=== PATIENT | female | born 1985 | race Caucasian/White ===

== ENCOUNTER 2018-08-04 10:03 | Emergency (ER) | payer OTHER, SELFPAY ==
[2018-08-04 10:45] VITALS: BP 109/72; PULSE 91; RESP 16; TEMP 36.5; O2SAT 99
--- NOTE | 2018-08-04 12:07 | ED.URI ---
HPI - URI/Sore Throat <LINO Ahn - Last Filed: 08/04/18 21:23> General Chief Complaint: Upper Respiratory Symptoms Stated Complaint: DIFFICULTY BREATHING Time Seen by Provider: 08/04/18 12:06 Source: patient Mode of arrival: ambulatory Limitations: no limitations History of Present Illness HPI Narrative: 32-year-old healthy female that is a nonsmoker here for complaint of having wheezing and shortness of breath earlier today. She was recently seen at the [facility] and treated for pneumonia a couple weeks ago. She has had continued symptoms after treatment with antibiotics and is currently being treated for adult onset asthma. she currently has an albuterol inhaler that she has been using which has been helping. She was placed on steroids but she stop taking them approximately 10 days ago. She denies any recent fever. Cough And shortness of breath is better after using the albuterol inhaler this morning. she denies any recent fevers. Positive p.o. intake no nausea vomiting. She denies any pain. MD Complaint: cough Related Data Home Medications Medication Instructions Recorded Confirmed albuterol sulfate [ProAir HFA] 1 puff INHALATION PRN PRN 08/04/18 08/04/18 benzonatate 100 mg PO TID 08/04/18 08/04/18 ipratropium-albuterol [Combivent 1 puff INHALATION DIRECTED 08/04/18 08/04/18 Respimat] methylprednisolone 1 dose PO DIRECTED 08/04/18 08/04/18 multivitamin 1 tab PO DAILY 08/04/18 08/04/18 Previous Rx's Medication Instructions Recorded prednisone 40 mg PO DAILY #8 tab 08/04/18 Allergies Allergy/AdvReac Type Severity Reaction Status Date / Time erythromycin base Allergy Verified 08/04/18 10:45 Penicillins Allergy Verified 08/04/18 10:45 Review of Systems <LINO Ahn - Last Filed: 08/04/18 21:23> Constitutional Denies chills, Denies fever(s), Denies lethargy and Denies weakness Eyes Denies change in vision, Denies eye discharge, Denies irritation and Denies loss of vision ENT Ears, Nose, Mouth, and Throat: Denies change in voice, Denies neck pain and Denies sore throat Cardiovascular Denies chest pain, Denies irregular heart rhythm, Denies lightheadedness, Denies palpitations and Denies orthopnea Respiratory Reports chest congestion and Reports wheezing Gastrointestinal Gastrointestinal: Denies abdominal pain, Denies change in bowel habits, Denies diarrhea, Denies nausea and Denies vomiting Genitourinary Denies hematuria, Denies flank pain, Denies urinary incontinence and Denies urinary urgency Musculoskeletal Denies neck pain Integumentary/Breasts Denies pruritus, Denies erythema, Denies rash and Denies wounds Neurologic Denies confusion, Denies loss of vision and Denies weakness Psychiatric Denies anxiety, Denies confusion, Denies depression, Denies homicidal ideation and Denies suicidal ideation Endocrine Denies palpitations Hematologic/Lymphatic Denies easy bruising Allergic/Immunologic Reports wheezing Exam <LINO Ahn - Last Filed: 08/04/18 21:23> Initial Vital Signs Initial Vital Signs: Vital Signs Temperature 97.7 F 08/04/18 10:45 Pulse Rate 91 H 08/04/18 10:45 Respiratory Rate 16 08/04/18 10:45 Blood Pressure 109/72 08/04/18 10:45 Pulse Oximetry 99 08/04/18 10:45 Const General: cooperative and well developed Nutritional Appearance: well nourished Orientation: alert, awake, oriented x3 and not confused HENAR Mouth: oral mucosae normal, oropharynx normal and moist mucous membranes Eyes Conjunctivae: conjunctivae normal Sclera: sclerae normal Pupils: PERRL EOM: EOM intact bilaterally Resp Effort & Inspection: normal respiratory effort, able to speak in complete sentences, no respiratory distress and no use of accessory muscles Auscultation: clear to auscultation bilaterally, no rales, no rhonchi and no wheezes Cardio Rate: regular rate Rhythm: regular rhythm Heart Sounds: no click, no gallops, no murmurs and no rubs Pulses: normal peripheral pulses Skin General: no rashes or lesions noted, No jaundice and No petechiae Neuro General: alert, oriented x3, gait normal and no focal motor deficits Speech: speech normal <Merary Gallagher DO - Last Filed: 08/05/18 07:18> Initial Vital Signs Initial Vital Signs: Vital Signs Temperature 97.7 F 08/04/18 10:45 Pulse Rate 91 H 08/04/18 10:45 Respiratory Rate 16 08/04/18 10:45 Blood Pressure 109/72 08/04/18 10:45 Pulse Oximetry 99 08/04/18 10:45 Course <LINO Ahn - Last Filed: 08/04/18 21:23> Orders Ordered: Discontinued Medications Albuterol/Ipratropium (Duoneb) 3 ml INH NOW ONE Stop: 08/04/18 12:18 Last Admin: 08/04/18 12:33 Dose: 3 ml Vital Signs - 8 hr 08/04/18 10:45 08/04/18 12:34 Temperature 97.7 F Pulse Rate 91 H 90 Respiratory Rate 16 Blood Pressure 109/72 Pulse Oximetry 99 99 <Merary Gallagher DO - Last Filed: 08/05/18 07:18> Orders Ordered: Discontinued Medications Albuterol/Ipratropium (Duoneb) 3 ml INH NOW ONE Stop: 08/04/18 12:18 Last Admin: 08/04/18 12:33 Dose: 3 ml Vital Signs - 8 hr 08/04/18 10:45 08/04/18 12:34 Temperature 97.7 F Pulse Rate 91 H 90 Respiratory Rate 16 Blood Pressure 109/72 Pulse Oximetry 99 99 MDM - URI/Sore Throat <LINO Ahn - Last Filed: 08/04/18 21:23> Imaging Data Chest x-ray: Radiologist's impression: RADHA Suarez [id number] XRay Report Signed Patient: FARTUN MART DMR#: [id number] : 1985Acct:[id number] Age/Sex: 32 / FDate of Service: 08/04/18 Loc: ED Accession Number: [id number] Procedure: XR chest 2V Ordering Provider: Osbaldo Trejo PROCEDURE: XR CHEST 2V INDICATIONS: recent dx pneumonia not any better TECHNIQUE: 2 views of the chest were acquired. COMPARISON: None. FINDINGS: Surgical changes and devices: None. Lungs and pleura: No pleural effusions or pneumothorax. Lungs are clear. No focal consolidation is evident. Mediastinum: Mediastinal contours are normal. Heart size is normal. Bones and chest wall: No suspicious bony abnormalities. Soft tissues appear unremarkable. IMPRESSION: No pneumonia is evident. No acute process is suspected. Dictated by: Sixto Reardon M.D. on 08/04/2018 at 11:43 Approved by: Sixto Reardon M.D. on 08/04/2018 at 11:46 MDM Narrative Medical decision making narrative: chest x-ray was obtained was negative for any acute findings. No signs of pneumonia. Suspect viral illness causing increased irritation to her airways. Continue using albuterol inhaler as prescribed. Short course of prednisone is given to help with airway irritation. Follow up with primary care provider in the next couple days for re-evaluation. If continued symptoms consider pulmonary referral. for any worsening symptoms return to the emergency room. Discharge Plan Departure Patient Disposition: Home Clinical Impression: Upper respiratory infection Discharge Date/Time: 08/04/18 13:10 Interventions: ED Discharge Assessment Last Done: 08/04/18 13:09 Instructions: DI for Viral Upper Respiratory Infection -- Adult Activity Restrictions/Additional Instructions: x-ray of the chest was obtained was negative for any signs of pneumonia. Signs and symptoms presents as viral upper respiratory infection causing irritation to the airways . recommend follow up with primary care provider in the next few days for re-evaluation. If continued symptoms recommend pulmonary referral to rule out asthma. here prescribed a short course of prednisone use as directed. Use albuterol inhaler as prescribed. For any worsening symptoms return to the emergency room. Prescriptions: New prednisone 20 mg tablet 40 mg PO DAILY Qty: 8 RF: 0 No Action multivitamin Tablet 1 tab PO DAILY RF: 0 benzonatate 100 mg capsule 100 mg PO TID RF: 0 methylprednisolone 4 mg tablets,dose pack 1 dose PO DIRECTED RF: 0 albuterol sulfate [ProAir HFA] 90 mcg/actuation HFA aerosol inhaler 1 puff Inhalation PRN PRN (Reason: Shortness Of Breath) RF: 0 ipratropium-albuterol [Combivent Respimat] 20-100 mcg/actuation mist 1 puff Inhalation DIRECTED RF: 0 Referrals: [facility] [Provider Group] Stand Alone Forms: Work/School Restrictions <Merary Gallagher DO - Last Filed: 08/05/18 07:18> Cosign ED Attending Cosignature Attestation: I was immediately available in the department for consultation. This documentation has been reviewed and I agree with assessment and plan. Supervised by Merary Gallagher DO
--- NOTE | 2018-08-04 12:17 | DI.RAD.S_ITS ---
PROCEDURE: XR CHEST 2V INDICATIONS: recent dx pneumonia not any better TECHNIQUE: 2 views of the chest were acquired. COMPARISON: None. FINDINGS: Surgical changes and devices: None. Lungs and pleura: No pleural effusions or pneumothorax. Lungs are clear. No focal consolidation is evident. Mediastinum: Mediastinal contours are normal. Heart size is normal. Bones and chest wall: No suspicious bony abnormalities. Soft tissues appear unremarkable. IMPRESSION: No pneumonia is evident. No acute process is suspected. Dictated by: Sixto Reardon M.D. on 08/04/2018 at 11:43 Approved by: Sixto Reardon M.D. on 08/04/2018 at 11:46
[2018-08-04] MEDS: ALBUTEROL/IPRATROPIUM 3 ML AMPUL INH (12:33)
[2018-08-04 12:34] VITALS: PULSE 90; O2SAT 99
--- NOTE | 2018-08-04 12:53 | ED_ITS ---
HPI - URI/Sore Throat <LINO Ahn - Last Filed: 08/04/18 21:23> General Chief Complaint: Upper Respiratory Symptoms Stated Complaint: DIFFICULTY BREATHING Time Seen by Provider: 08/04/18 12:06 Source: patient Mode of arrival: ambulatory Limitations: no limitations History of Present Illness HPI Narrative: 32-year-old healthy female that is a nonsmoker here for complaint of having wheezing and shortness of breath earlier today. She was recently seen at the [facility] and treated for pneumonia a couple weeks ago. She has had continued symptoms after treatment with antibiotics and is currently being treated for adult onset asthma. she currently has an albuterol inhaler that she has been using which has been helping. She was placed on steroids but she stop taking them approximately 10 days ago. She denies any recent fever. Cough And shortness of breath is better after using the albuterol inhaler this morning. she denies any recent fevers. Positive p.o. intake no nausea vomiting. She denies any pain. MD Complaint: cough Related Data Home Medications Medication Instructions Recorded Confirmed albuterol sulfate [ProAir HFA] 1 puff INHALATION PRN PRN 08/04/18 08/04/18 benzonatate 100 mg PO TID 08/04/18 08/04/18 ipratropium-albuterol [Combivent 1 puff INHALATION DIRECTED 08/04/18 08/04/18 Respimat] methylprednisolone 1 dose PO DIRECTED 08/04/18 08/04/18 multivitamin 1 tab PO DAILY 08/04/18 08/04/18 Previous Rx's Medication Instructions Recorded prednisone 40 mg PO DAILY #8 tab 08/04/18 Allergies Allergy/AdvReac Type Severity Reaction Status Date / Time erythromycin base Allergy Verified 08/04/18 10:45 Penicillins Allergy Verified 08/04/18 10:45 Review of Systems <LINO Ahn - Last Filed: 08/04/18 21:23> Constitutional Denies chills, Denies fever(s), Denies lethargy and Denies weakness Eyes Denies change in vision, Denies eye discharge, Denies irritation and Denies loss of vision ENT Ears, Nose, Mouth, and Throat: Denies change in voice, Denies neck pain and Denies sore throat Cardiovascular Denies chest pain, Denies irregular heart rhythm, Denies lightheadedness, Denies palpitations and Denies orthopnea Respiratory Reports chest congestion and Reports wheezing Gastrointestinal Gastrointestinal: Denies abdominal pain, Denies change in bowel habits, Denies diarrhea, Denies nausea and Denies vomiting Genitourinary Denies hematuria, Denies flank pain, Denies urinary incontinence and Denies urinary urgency Musculoskeletal Denies neck pain Integumentary/Breasts Denies pruritus, Denies erythema, Denies rash and Denies wounds Neurologic Denies confusion, Denies loss of vision and Denies weakness Psychiatric Denies anxiety, Denies confusion, Denies depression, Denies homicidal ideation and Denies suicidal ideation Endocrine Denies palpitations Hematologic/Lymphatic Denies easy bruising Allergic/Immunologic Reports wheezing Exam <LINO Ahn - Last Filed: 08/04/18 21:23> Initial Vital Signs Initial Vital Signs: Vital Signs Temperature 97.7 F 08/04/18 10:45 Pulse Rate 91 H 08/04/18 10:45 Respiratory Rate 16 08/04/18 10:45 Blood Pressure 109/72 08/04/18 10:45 Pulse Oximetry 99 08/04/18 10:45 Const General: cooperative and well developed Nutritional Appearance: well nourished Orientation: alert, awake, oriented x3 and not confused HENIN Mouth: oral mucosae normal, oropharynx normal and moist mucous membranes Eyes Conjunctivae: conjunctivae normal Sclera: sclerae normal Pupils: PERRL EOM: EOM intact bilaterally Resp Effort & Inspection: normal respiratory effort, able to speak in complete sentences, no respiratory distress and no use of accessory muscles Auscultation: clear to auscultation bilaterally, no rales, no rhonchi and no wheezes Cardio Rate: regular rate Rhythm: regular rhythm Heart Sounds: no click, no gallops, no murmurs and no rubs Pulses: normal peripheral pulses Skin General: no rashes or lesions noted, No jaundice and No petechiae Neuro General: alert, oriented x3, gait normal and no focal motor deficits Speech: speech normal <Merary Gallagher DO - Last Filed: 08/05/18 07:18> Initial Vital Signs Initial Vital Signs: Vital Signs Temperature 97.7 F 08/04/18 10:45 Pulse Rate 91 H 08/04/18 10:45 Respiratory Rate 16 08/04/18 10:45 Blood Pressure 109/72 08/04/18 10:45 Pulse Oximetry 99 08/04/18 10:45 Course <LINO Ahn - Last Filed: 08/04/18 21:23> Orders Ordered: Discontinued Medications Albuterol/Ipratropium (Duoneb) 3 ml INH NOW ONE Stop: 08/04/18 12:18 Last Admin: 08/04/18 12:33 Dose: 3 ml Vital Signs - 8 hr 08/04/18 10:45 08/04/18 12:34 Temperature 97.7 F Pulse Rate 91 H 90 Respiratory Rate 16 Blood Pressure 109/72 Pulse Oximetry 99 99 <Merary Gallagher DO - Last Filed: 08/05/18 07:18> Orders Ordered: Discontinued Medications Albuterol/Ipratropium (Duoneb) 3 ml INH NOW ONE Stop: 08/04/18 12:18 Last Admin: 08/04/18 12:33 Dose: 3 ml Vital Signs - 8 hr 08/04/18 10:45 08/04/18 12:34 Temperature 97.7 F Pulse Rate 91 H 90 Respiratory Rate 16 Blood Pressure 109/72 Pulse Oximetry 99 99 MDM - URI/Sore Throat <LINO Ahn - Last Filed: 08/04/18 21:23> Imaging Data Chest x-ray: Radiologist's impression: RADHA Suarez [id number] XRay Report Signed Patient: FARTUN MART DMR#: [id number] : 1985Acct:[id number] Age/Sex: 32 / FDate of Service: 08/04/18 Loc: ED Accession Number: [id number] Procedure: XR chest 2V Ordering Provider: Osbaldo Trejo PROCEDURE: XR CHEST 2V INDICATIONS: recent dx pneumonia not any better TECHNIQUE: 2 views of the chest were acquired. COMPARISON: None. FINDINGS: Surgical changes and devices: None. Lungs and pleura: No pleural effusions or pneumothorax. Lungs are clear. No focal consolidation is evident. Mediastinum: Mediastinal contours are normal. Heart size is normal. Bones and chest wall: No suspicious bony abnormalities. Soft tissues appear unremarkable. IMPRESSION: No pneumonia is evident. No acute process is suspected. Dictated by: Sixto Reardon M.D. on 08/04/2018 at 11:43 Approved by: Sixto Reardon M.D. on 08/04/2018 at 11:46 MDM Narrative Medical decision making narrative: chest x-ray was obtained was negative for any acute findings. No signs of pneumonia. Suspect viral illness causing increased irritation to her airways. Continue using albuterol inhaler as prescribed. Short course of prednisone is given to help with airway irritation. Follow up with primary care provider in the next couple days for re -evaluation. If continued symptoms consider pulmonary referral. for any worsening symptoms return to the emergency room. Discharge Plan Departure Patient Disposition: Home Clinical Impression: Upper respiratory infection Discharge Date/Time: 08/04/18 13:10 Interventions: ED Discharge Assessment Last Done: 08/04/18 13:09 Instructions: DI for Viral Upper Respiratory Infection -- Adult Activity Restrictions/Additional Instructions: x-ray of the chest was obtained was negative for any signs of pneumonia. Signs and symptoms presents as viral upper respiratory infection causing irritation to the airways . recommend follow up with primary care provider in the next few days for re-evaluation. If continued symptoms recommend pulmonary referral to rule out asthma. here prescribed a short course of prednisone use as directed. Use albuterol inhaler as prescribed. For any worsening symptoms return to the emergency room. Prescriptions: New prednisone 20 mg tablet 40 mg PO DAILY Qty: 8 RF: 0 No Action multivitamin Tablet 1 tab PO DAILY RF: 0 benzonatate 100 mg capsule 100 mg PO TID RF: 0 methylprednisolone 4 mg tablets,dose pack 1 dose PO DIRECTED RF: 0 albuterol sulfate [ProAir HFA] 90 mcg/actuation HFA aerosol inhaler 1 puff Inhalation PRN PRN (Reason: Shortness Of Breath) RF: 0 ipratropium-albuterol [Combivent Respimat] 20-100 mcg/actuation mist 1 puff Inhalation DIRECTED RF: 0 Referrals: [facility] [Provider Group] Stand Alone Forms: Work/School Restrictions <Merary Gallagher DO - Last Filed: 08/05/18 07:18> Cosign ED Attending Cosignature Attestation: I was immediately available in the department for consultation. This documentation has been reviewed and I agree with assessment and plan. Supervised by Merary Gallagher DO
[2018-08-04 13:09] VITALS: BP 119/65; PULSE 98; RESP 20; O2SAT 99
== END 2018-08-04 13:10 | disposition home or self-care (01) ==
PROVIDERS: Emergency Provider Nurse Practitioner Family
DX: J06.9 Acute upper respiratory infection, unspecified (principal)
CPT/HCPCS: 71046; 94640; 99282; 99283

== ENCOUNTER 2018-11-04 12:28 | Emergency (ER) | payer OTHER, SELFPAY ==
[2018-11-04 12:46] VITALS: BP 120/74; PULSE 68; RESP 14; TEMP 36.7; O2SAT 100
--- NOTE | 2018-11-04 12:58 | DI.CT.S_ITS ---
PROCEDURE: CT HEAD/BRAIN WO CON INDICATIONS: heavy steel bar hit right side of head above ear, cont pain. TECHNIQUE: Noncontrast 4.5 mm thick angled axial sections acquired from the foramen magnum to the vertex, with coronal and sagittal reformats. For radiation dose reduction, the following was used: automated exposure control, adjustment of mA and/or kV according to patient size. COMPARISON: None. FINDINGS: Image quality: Excellent. CSF spaces: Basal cisterns are patent. No extra-axial fluid collections. Ventricles are normal in size and shape. Brain: No midline shift. No intracranial masses or hemorrhage. Wills-white matter interface is normal. Skull and face: Calvarium and visualized facial bones are intact, without suspicious lesions. Sinuses: Visualized sinuses and mastoids are clear. IMPRESSION: Normal head CT. Dictated by: Robert Noonan M.D. on 11/04/2018 at 13:29 Approved by: Robert Noonan M.D. on 11/04/2018 at 13:30
--- NOTE | 2018-11-04 15:07 | PC.NURSE ---
No neuro deficit. Does report change in mood and has difficulty w/ task requiring mental exertion.
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
[2018-11-04] MEDS: IBUPROFEN 400 MG TABLET PO (15:56)
[2018-11-04 16:11] VITALS: BP 110/72; PULSE 54; RESP 12; O2SAT 98
== END 2018-11-04 16:13 | disposition home or self-care (01) ==
PROVIDERS: Emergency Provider Nurse Practitioner Family
DX: S06.0X0A Concussion without loss of consciousness, initial encounter (principal); W22.8XXA Striking against or struck by other objects, initial encounter
CPT/HCPCS: 70450; 99282; 99284

== ENCOUNTER → 2019-03-22 09:37 | Outpatient (CLI) | payer OTHER, SELFPAY ==
--- NOTE | 2019-03-22 09:38 | DI.RAD.S_ITS ---
PROCEDURE: XR HUMERUS LT 2V INDICATIONS: eval foreign body, humerus side/contraceptive device TECHNIQUE: 2 views of the humerus were acquired. COMPARISON: None. FINDINGS: Bones: No fractures or dislocations. No suspicious bony lesions. Soft tissues: No suspicious soft tissue calcifications. Linear tubular foreign body is seen within medial soft tissue at the level of distal humeral shaft. IMPRESSION: Foreign body/contraceptive device in medial soft tissue of distal upper arm. Dictated by: Timothy Segura M.D. on 03/22/2019 at 11:47 Approved by: Timothy Segura M.D. on 03/22/2019 at 11:49
== END ==
PROVIDERS: PCP Obstetrics & Gynecology; Visit Provider Surgery
DX: M79.5 Residual foreign body in soft tissue (principal); Z97.5 Presence of (intrauterine) contraceptive device
CPT/HCPCS: 73060; 99213

== ENCOUNTER 2019-04-04 07:47 | Day surgery (SDC) | payer OTHER, SELFPAY ==
[2019-03-24 10:25] VITALS: BMI 26.6
[2019-04-04] VITALS (7 sets, daily range): BP systolic 99–107; BP diastolic 53–70; PULSE 70–82; RESP 13–16; TEMP 36.2–36.9; O2SAT 97–100; BMI 25.9
--- NOTE | 2019-04-04 | PATH_ITS ---
[facility] Accession Number: [id number] . 01 Material submitted: . arm - LEFT UPPER EXTREMITY . 01 Clinical history: . FOREIGN BODY REMOVAL . 02 Diagnosis: Left Upper Extremity, Foreign Body Removal: Gross only diagnosis. MRV/04/06/2019 . 02 Electronically signed: . Jil Matt MD, Pathologist NPI- [id number] . 01 Gross description: . Received in formalin, labeled foreign body of left upper extremity, is a tubular piece of white plastic (length-4.0 cm, diameter-0.1 cm). No tissue is present. The specimen is for gross description only. ([id number]) /MRV . 02 Pathologist provided ICD-10: Z18.9 . 02 CPT . 169870 Performed at: 01 [facility] [address] [id number] MD Fabiano Powers MD Phone: [phone] Performed at: 02 [facility] [address] [place] [id number] MD Jil Matt MD Phone: [phone]
[2019-04-04] MEDS: LACTATED RINGERS 1,000 ML 42 ML IV (08:57)
--- NOTE | 2019-04-04 09:10 | PM.PREOP ---
Pre-operative Note Interval Note History & Physical reviewed/Exam performed by Physician: Yes Changes to H&P: No
--- NOTE | 2019-04-04 09:11 | SUR.PREOP ---
Dr Steiner stated blood sugar is not to be done.
[2019-04-04] MEDS: MIDAZOLAM 2 MG/2 ML VIAL IV (09:40)
--- NOTE | 2019-04-04 10:05 | SUR.OPER ---
Supine on padded OR bed, head on pillow, non-operative arm secured on padded arm boards at <90 degrees abduction, operative arm on arm table, legs uncrossed, safety belt at thigh, tape over blanket over lower legs.
[2019-04-04] MEDS: CLINDAMYCIN 900 MG/50 ML PIGGYBACK 50 MG IV (10:13)
[2019-04-04] MEDS: BUPIVACAINE 0.25% W/ EPI 30 ML VIAL INJ (10:15)
--- NOTE | 2019-04-04 10:35 | PM.OP.1 ---
Operative Date/Time/Diagnoses Date of procedure: 04/04/19 Time of procedure: 10:35 Pre-op diagnosis: Foreign Body of Left Upper Extremity Post-op diagnosis: same Procedure & Clinicians Procedure: 1. Removal of LUE Foreign Body 2. Excision of Scar Same procedure as scheduled: Yes Indications: 33yo F with an implantable contraceptive device which was unable to be removed in office. Referred to surgery for removal. Surgeon: Iqra Tabler Click Yes if Unassisted: Yes Anesthesia Type: General Operative Notes Findings: Intact nexplanon removed. Thick scar tissue from prior retrieval attempt so scar excised. Closure Type: primary Specimen(s): other (LUE Foriegn Body) Estimated Blood Loss (mL): 3 Procedure in detail: Patient is taken to the OR suite, placed in supine position, and induced to an acceptable level of general anesthesia. The area is prepped and draped in sterile fashion and a timeout performed with the team present. Attention is turned to the lesion of the left upper extremity which was marked pre-operatively with patient and now per XR measurements. Local anesthesia is infiltrated over the site. An incision is made with a 15 blade scalpel in the area of concern. The tissue is explored and the device identified. It is gently removed with a hemostat and noted to be intact. It is sent off the field. The scar from prior explorations was quite thick so the incision is made into an ellipse to remove this area of concern. The field is irrigated and hemostasis ensured. The dermis is closed with 3-0 vicryl in an interrupted fashion and the epidermis with 4-0 monocryl in running fashion. The area is cleaned and dried and dermabond applied. All counts were correct. Patient tolerated the procedure well, was awakened without issue, and taken to PACU hemodynamically stable. Complications: none Condition: stable Disposition: PACU
== END 2019-04-04 11:05 | disposition home or self-care (01) ==
PROVIDERS: PCP Obstetrics & Gynecology; Visit Provider Surgery
PROC: (CPT 36590; principal; 2019-04-04 09:45)
DX: Z45.89 Encounter for adjustment and management of other implanted devices (principal); S40.852A Superficial foreign body of left upper arm, initial encounter
CPT/HCPCS: 11982; 88300; J2250; J2405; J2704; J3010